=== PATIENT | female | born 1990 | race African-American/Black ===

== ENCOUNTER 2016-05-09 08:35 | Inpatient (IN) | payer OTHER ==
[2016-05-09 09:23] VITALS: BMI 33.5
[2016-05-09] MEDS ORDERED: OXYTOCIN 15 UNITS/ LR 250 ML 250 ML IVPB SCH (09:45)
[2016-05-09] MEDS: ELECTROLYTE-148 SOLN 1,000 ML IV SCH (09:50)
--- NOTE | 2016-05-09 09:50 | HP ---
Past Medical History - Admission Chief Complaint: Here for labor induction. History of Present Illness: 25 y/o with SIUP at 39.0 weeks gestation here for induction of labor. Pt has no complaints. +FM, no VB/LOF/CTx. Pt reports feeling pressure. 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 Last documented EFW was 23%ile with both AC and HC measuring in the 9%ile. GBS negative, HIV negative. History Source: Patient, Medical Record Limitations to Obtaining History: No Limitations - Past Medical History Cardiovascular: No: HTN, [place] Pulmonary: No: Asthma, COPD Gastrointestinal: No: GERD, Inflamatory Bowel Disease Hepatobiliary: No: Hepatitis B, Hepatitis C Renal/: No: UTI Reproductive: No: Ectopic , Fibroids, PID, Polycystic Ovary Syndrome ...: 1 ...Para: 0 ...Term: 0 ...: 0 ...Spon : 1 ...Induced : 0 ...LMP: 08/10/15 ... Weeks Gestation by Dates: 39 ...EDC by Dates: 05/16/16 ...EDC by Sono: 05/16/16 Infectious Disease: No: AIDS, HIV, MRSA Psych: No: Anxiety, Depression (pt denies) Endocrine: No: Diabetes Mellitus, Hyperthyroidism, Hypothyroidism - Past Surgical History Past Surgical History: Yes: None Hx Myomectomy: No Hx Transabdominal Cerclage: No - Smoking History Smoking history: Never smoked - Alcohol/Substance Use Hx Alcohol Use: No History of Substance Use: reports: None (per patient) - Social History Usual Living Arrangement: Yes: With Significant Other ADL: Independent History of Recent Travel: No Home Medications - Allergies Allergies/Adverse Reactions: Allergies Allergy/AdvReac Type Severity Reaction Status Date / Time shellfish derived Allergy Verified 05/09/16 09:28 - Home Medications Home Medications: Ambulatory Orders Vit/Iron Fumarate/FA [ Tablet] 1 each PO DAILY 05/09/16 Review of Systems - Review of Systems Constitutional: reports: No Symptoms Eyes: reports: No Symptoms HENT: reports: No Symptoms Neck: reports: No Symptoms Cardiovascular: reports: No Symptoms Respiratory: reports: No Symptoms Gastrointestinal: reports: No Symptoms Genitourinary: reports: No Symptoms Breasts: reports: No Symptoms Reported Musculoskeletal: reports: No Symptoms Integumentary: reports: No Symptoms Neurological: reports: No Symptoms Endocrine: reports: No Symptoms Hematology/Lymphatic: reports: No Symptoms Psychiatric: reports: No Symptoms Physical Exam - Maternity Vital Signs: Vital Signs Temperature 98.1 F 05/09/16 09:07 Pulse Rate 92 H 05/09/16 09:07 Respiratory Rate 20 05/09/16 09:07 Blood Pressure 129/73 05/09/16 09:07 O2 Sat by Pulse Oximetry (%) Constitutional: Yes: Well Nourished, No Distress, Calm Eyes: Yes: Conjunctiva Clear, EOM Intact HENT: Yes: Atraumatic, Normocephalic Neck: Yes: Supple, Trachea Midline Cardiovascular: Yes: Regular Rate and Rhythm Lungs: Clear to auscultation Breast(s): Yes: WNL - Abdominal Exam/OB Fundal Height: 37 Number of Fetuses: Single Presentation: Vertex Contractions: No Regularity: Irregular Intensity: Unaware Heart Rate (range): 145 - Vaginal Exam/OB Vaginal Bleediing: No Dilatation (cm): 3 Effacement (%): 80 Amniotic Membrane Status: Intact Presentation: Vertex/Position Station: -1 - Physical Exam Extremities: Yes: WNL Psychiatric: Yes: WNL, Alert, Oriented Hemorrhage Risk Assessment - Risk Factors Medium Risk Factors: Yes: None High Risk Factors: Yes: None Risk Score: 1 Risk Level: Medium Risk Problem List - Problems (1) Term Code(s): Z34.80 - ENCOUNTER FOR SUPRVSN OF NORMAL , UNSP TRIMESTER Assessment/Plan 25 y/o with SIUP at 39 weeks, labor induction - FHTS reactive for continuous monitoring - labor induction. Cervix ripe. Bishops score 10, to start pitocin - GBS negative
[2016-05-09 09:59] LABS: BASOPHIL 0.4 % (0-2.0); EOSINOPHIL 0.3 % (0-4.5); MCH 25.9 pg (25.7-33.7); MCHC 32.5 g/dl (32.0-36.0); MEAN CELL VOLUME 79.9 fl (80-96); MEAN PLT VOLUME 9.9 fl (7.5-11.1); PLATELET COUNT 186 K/MM3 (134-434); RDW 14.4 % (11.6-15.6); WHITE BLOOD COUNT 11.2 K/mm3 (4.0-10.0)
[2016-05-09] MEDS ORDERED: BUTORPHANOL TARTRATE 1 MG/ML VIAL IVPB ONE (10:00)
[2016-05-09] MEDS ORDERED: PROMETHAZINE HCL 25 MG/1 ML VIAL IVPUSH ONE (10:00)
[2016-05-09 10:20] LABS: INR 1.04 (0.82-1.09); PROTHROMBIN TIME (PATIENT) 11.4 SEC (9.98-11.88)
[2016-05-09 10:23] LABS: ACTIVATED PTT 31.2 SECONDS (26.9-34.4)
[2016-05-09 10:41] LABS: CALCIUM 9.6 mg/dL (8.5-10.1); CREATININE 0.6 mg/dL (0.55-1.02)
--- NOTE | 2016-05-09 12:51 | PN ---
Ante-Partal Exam - Subjective Subjective: Pt tolerating contractions. Pain 2/10. Pitocin at 6. Vital Signs: Vital Signs Temperature 98.4 F 05/09/16 10:01 Pulse Rate 81 05/09/16 11:57 Respiratory Rate 20 05/09/16 11:57 Blood Pressure 120/70 05/09/16 11:57 O2 Sat by Pulse Oximetry (%) Bleeding: No Headache: No Visual changes: No Right upper quadrant pain: No Pain (scale 1-10): 2 - Contractions Contractions: Yes Regularity: Regular Intensity: Mild/Mod Monitor Mode: External - Exam during Labor Heart Rate: 140 Category: I Monitor Accelerations: Present Monitor Decelerations: None Exam: Vaginal Dilatation (cm): 4 Effacement (%): 80 Amniotic Membrane Status: Ruptured (AROM for clear) Nitrazine Test: Positive Amniotic Fluid: Clear Presentation: Vertex Station: -1 - Intrapartum Hemorrhage Risk Medium Risk Factors: None High Risk Factors: None Risk Score: 0 Risk Level: Low Risk - Assessment/Plan Assessment/Plan: 25 y/o with SIUP at 39 weeks, IOL - FHTS cat 1 - IOL, continue pitocin, s/p AROM at this examination for clear fluid - GBS negative
[2016-05-09] MEDS ORDERED: FENTANYL/BUPIVACAINE/NS/PF - PCEA - 50 ML DISP.SYRIN EP SCH (15:30)
--- NOTE | 2016-05-09 17:29 | PN ---
Delivery - Delivery Type of Anesthesia: Epidural Episiotomy/Laceration: 1st degree EBL (cc): 300 Delivery, Single - Stages of Labor Date 1st Stage Initiatied: 05/09/16 Time 1st Stage Initiated: 12:00 Date of Delivery: 05/09/16 Time of Delivery: 17:12 Date Placenta Delivered: 05/09/16 Time Placenta Delivered: 17:16 Placenta: Yes: Spontaneous - Condition of Infant Gender: Female Position: Left, OA - 5 Minutes Total Score: 10 1 Minute Total Score: 9 - Feeding Plan Initial Plan: Exclusive throughout hospitalization Remarks - Remarks Remarks: Uncomplicated of baby girl from RAMON position anterior shoulder (right) delivered with ease, along with remainder of infant 3VC noted, clamped and cut mouth and nose bulb suctioned Apgars 9/10 1st degree laceration noted repaired with 2-0 chromic 300CC EBL no cervical lac appreciated sponge and needle count correct mom stable baby to well baby nursery
[2016-05-09] MEDS ORDERED: WITCH HAZEL 50% (TUCKS) 40 PAD/JAR PAD TP PRN (17:30)
[2016-05-09] MEDS ORDERED: METHYLERGONOVINE MALEATE 0.2 MG/1 ML AMP IM PRN (17:30)
[2016-05-09] MEDS ORDERED: BENZOCAINE 28 GM HEMORRHOIDAL OINTMENT TP PRN (17:30)
[2016-05-09] MEDS ORDERED: IBUPROFEN 600 MG TABLET (FP) PO PRN (17:30)
[2016-05-09] MEDS ORDERED: D5W-LR W/ 20 UNITS OXYTOCIN 1,000 ML IV SCH (17:30)
[2016-05-09] MEDS ORDERED: BISACODYL 10 MG SUPP.RECT RC PRN (17:30)
[2016-05-09] MEDS ORDERED: ACETAMINOPHEN 325 MG TABLET (FP) PO PRN (17:30)
[2016-05-09] MEDS ORDERED: BENZOCAINE 20% 57 GM BOTTLE TP PRN (17:30)
[2016-05-10 08:34] LABS: BASOPHIL 0.6 % (0-2.0); EOSINOPHIL 0.6 % (0-4.5); MCH 25.8 pg (25.7-33.7); MCHC 32.4 g/dl (32.0-36.0); MEAN CELL VOLUME 79.5 fl (80-96); MEAN PLT VOLUME 9.7 fl (7.5-11.1); NEUTROPHILS 87.3 % (42.8-82.8); PLATELET COUNT 179 K/MM3 (134-434); RDW 14.6 % (11.6-15.6); WHITE BLOOD COUNT 17.1 K/mm3 (4.0-10.0)
--- NOTE | 2016-05-10 09:10 | PN ---
Post Progress Note - Subjective Subjective: Pt seen/evaluated and doing well. Pain controlled, tolerating diet. Ambulating , voiding, passing flatus. VB minimal. no CP/SOB/F/C/FUENTES Type of Delivery: Vital Signs: Vital Signs Temperature 98.7 F 05/10/16 05:29 Pulse Rate 106 H 05/10/16 05:29 Respiratory Rate 18 05/10/16 05:29 Blood Pressure 120/73 05/10/16 05:29 O2 Sat by Pulse Oximetry (%) 100 05/09/16 18:15 Breast Exam: Yes: Soft Uterus: Yes: Fundus Firm, Fundus below umbilicus Abdomen/GI: Yes: Abdomen soft, Passing flatus, Tolerating PO. No: Abdominal Distention, Tender Lochia: Yes: Rubra Lochia, amount: Small Extremities: Yes: Calves non-tender. No: Edema Perineum: Yes: Laceration (1st degree) Activity: Ambulating - Labs Labs: CBC WBC 17.1 K/mm3 (4.0-10.0) H D 05/10/16 07:50 RBC 4.02 M/mm3 (3.60-5.2) 05/10/16 07:50 Hgb 10.3 GM/dL (10.7-15.3) L 05/10/16 07:50 Hct 32.0 % (32.4-45.2) L 05/10/16 07:50 MCV 79.5 fl (80-96) L 05/10/16 07:50 MCHC 32.4 g/dl (32.0-36.0) 05/10/16 07:50 RDW 14.6 % (11.6-15.6) 05/10/16 07:50 Plt Count 179 K/MM3 (134-434) 05/10/16 07:50 MPV 9.7 fl (7.5-11.1) 05/10/16 07:50 Neutrophils % 87.3 % (42.8-82.8) H 05/10/16 07:50 Lymphocytes % 6.5 % (8-40) L D 05/10/16 07:50 Monocytes % 5.0 % (3.8-10.2) 05/10/16 07:50 Eosinophils % 0.6 % (0-4.5) D 05/10/16 07:50 Basophils % 0.6 % (0-2.0) 05/10/16 07:50 Problem List - Problems (1) Term Code(s): Z34.80 - ENCOUNTER FOR SUPRVSN OF NORMAL , UNSP TRIMESTER (2) Vaginal delivery Code(s): O80 - ENCOUNTER FOR FULL-TERM UNCOMPLICATED DELIVERY Assessment/Plan Pt doing well post PO pain meds regular diet ambulation Hgb 10.3, no signs/sx of anemia - continue vitamins routine care
[2016-05-10] MEDS: PRENATAL VITAMINS W/ FOLIC ACID TABLET (FP) PO SCH (11:04)
[2016-05-10] MEDS ORDERED: SENNOSIDES/DOCUSATE COMBO (SENNA PLUS) TABLET (UD) PO PRN (22:00)
--- NOTE | 2016-05-11 09:25 | DS ---
Physical Exam-[facility] Vital Signs: Vital Signs Temperature 98.9 F 05/10/16 22:00 Pulse Rate 81 05/10/16 22:00 Respiratory Rate 20 05/10/16 22:00 Blood Pressure 129/71 05/10/16 22:00 O2 Sat by Pulse Oximetry (%) 100 05/09/16 18:15 Constitutional: Yes: Well Nourished, No Distress Neck: Yes: WNL Cardiovascular: Yes: WNL Respiratory: Yes: WNL Gastrointestinal: Yes: WNL, Normal Bowel Sounds ....Post : Yes: Uterus firm, Uterus non-tender Musculoskeletal: Yes: WNL Extremities: Yes: WNL Labs: CBC, BMP 05/10/16 07:50 05/09/16 09:20 Delivery - Delivery Vaginal Delivery: No Problems Type of Anesthesia: Epidural Episiotomy/Laceration: 1st degree EBL (cc): 300 Delivery, Single - Stages of Labor Date 1st Stage Initiatied: 05/09/16 Time 1st Stage Initiated: 12:00 Date 2nd Stage Initiated: 05/09/16 Time 2nd Stage Initiated: 16:50 Date of Delivery: 05/09/16 Time of Delivery: 17:12 Time Placenta Delivered: 17:16 Placenta: Yes: Spontaneous - Condition of Infant Gender: Female Weight: 5 lb 13 oz Position: Left, OA Total Hours ROM (Hrs/Mins): 4:30 - 5 Minutes Total Score: 10 1 Minute Total Score: 9 - [place] Feeding Plan Initial Plan: Exclusive throughout hospitalization Discharge Summary Reason For Visit: INDUCTION OF LABOR Current Active Problems Term (Acute) Vaginal delivery (Acute) Procedures: Principal: normal vaginal delivery Condition: Good - Instructions Diet, Activity, Other Instructions: Physical activity Resume your normal everyday activity as tolerated no heavy lifting or exercise until seen by your surgeon. You may walk unlimited katrin of and climb stairs. You may resume driving the car when you feel safe and comfortable behind the wheel. No sexual activity as instructed. Wound care If you have a bandage, leave it on, and keep dry for 48-72 hours. After that time discard the outer bandage. If they are tapes on the skin under the out of bandage leave them in place. They will peel off in the next 7 to 10 days. Do Not Peel them off. You may shower the day after surgery. If there are tapes present on the skin, you may shower over them. Diet There are no dietary restrictions. Eat healthy, high-fiber foods. Drink 6 to 8 glasses of liquid each day. This will assist in keeping your bowels are regular. Pain management You may take Tylenol or acetaminophen or Ibuprofen (for example, Motrin, Advil etc.) from my pain prescription medication is ordered should be taken as prescribed for moderate to severe pain. Call MD for any of the following: Severe pain not relieved by medication Fever of 101 or higher Excessive bleeding or drainage on dressing Inability to urinate Referrals: Alice Paulson DO [Staff Physician] - Disposition: HOME - Home Medications Comprehensive Discharge Medication List: Ambulatory Orders Vit/Iron Fumarate/FA [ Tablet] 1 each PO DAILY 05/09/16
[2016-05-11 09:35] VITALS: BP 118/57; PULSE 86; TEMP 98.7
[2016-05-11] MEDS: PRENATAL VITAMINS W/ FOLIC ACID TABLET (FP) PO SCH (10:08)
[2016-05-11] MEDS: ELECTROLYTE-148 SOLN 1,000 ML IV SCH (10:09)
== END 2016-05-11 13:15 | disposition home or self-care (01) | DRG 775 ==
LOC: JLDR 08:35 → J3W 19:23
PROVIDERS: ADMIT Obstetrics & Gynecology; ATTEND Obstetrics & Gynecology
PROC: 0W8NXZZ Division of Female Perineum, External Approach (ICD-10-PCS; principal; 2016-05-09)
PROC: 10E0XZZ Delivery of Products of Conception, External Approach (ICD-10-PCS; 2016-05-09)
PROC: 0HQ9XZZ Repair Perineum Skin, External Approach (ICD-10-PCS; 2016-05-09)
DX: O70.0 First degree perineal laceration during delivery (principal); Z3A.39 39 weeks gestation of pregnancy; Z37.0 Single live birth
CPT/HCPCS: 36415; 59409; 80048; 85025; 85610; 85730; 86593; 86850; 86900; 86901